=== PATIENT | male | born 1965 | race Caucasian/White ===

== ENCOUNTER 2020-05-06 09:03 | Outpatient (CLI) | payer MEDICARE, MEDICAID, SELFPAY | END 2020-05-06 09:04 | disposition home or self-care (01) | LOC: ANHBWCAUD 09:04 | DX: H91.93 Unspecified hearing loss, bilateral (principal) | CPT/HCPCS: 92557; 92567 ==

== ENCOUNTER 2023-05-01 08:11 | Outpatient (CLI) | payer MEDICARE, MEDICAID, SELFPAY | END 2023-05-01 08:12 | disposition home or self-care (01) | DX: H91.93 Unspecified hearing loss, bilateral (principal) | CPT/HCPCS: 92557; 92567 ==